=== PATIENT | male | born 2005 | race Caucasian/White ===

== ENCOUNTER 2024-07-21 12:38 | Emergency (ER) | payer OTHER, SELFPAY ==
[2024-07-21 12:40] VITALS: BP 137/87; PULSE 91; RESP 17; TEMP 36.8; O2SAT 100; BMI 23.0
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
[2024-07-21 13:47] VITALS: BP 139/89; PULSE 76; O2SAT 99
[2024-07-21 13:51] VITALS: BP 139/89; PULSE 78; O2SAT 99
--- NOTE | 2024-07-21 14:15 | DI.CT.S_ITS ---
PROCEDURE: CT FACIAL BONES WO CON INDICATIONS: dislocation? TECHNIQUE: Noncontrast 2.5 mm thick axial images acquired from the mandible through the frontal sinuses, with coronal and sagittal reformatting. For radiation dose reduction, the following was used: automated exposure control, adjustment of mA and/or kV according to patient size. COMPARISON: [facility], CR, XR MANDIBLE MIN 4V, 07/21/2024, 12:59. FINDINGS: Image quality: Excellent. Bones and teeth: 3 there is a mildly displaced fracture seen involving the anterior left mandible, as on series 2, image 17 and on series 4, image 37. There is an additional mildly displaced fracture of the right mandibular ramus, as on series 5, image 71. The mandibular condyles are not dislocated. A left mandibular incisor is missing. Orbital colón are intact. Sinus colón show no fracture or deformity. Nasal bones and septum are intact. Zygomatic arches are intact. Pterygoid plates are intact. Visualized portions of the skull base and auditory canals are intact. Sinuses: Paranasal sinuses are aerated, without fluid levels, mucosal thickening, or mucoceles. Mastoid air cells are aerated. Soft tissues: Associated soft tissue swelling can be seen anterior to the mandible. Vascular: Visualized vascular structures appear normal in the absence of contrast. Bony vascular foramina and canals are intact. IMPRESSION: Fractures seen of both sides of the mandible. No mandibular dislocation. Dictated by: Boni Garcia M.D. on 07/21/2024 at 13:45 Approved by: Boni Garcia M.D. on 07/21/2024 at 13:47
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
[2024-07-21 14:30] LABS: Add Manual Diff / Slide Review NO; Basophils Absolute Auto 100 /uL (0-100); Basophils Percent Auto 0.4 % (0-2); Eosinophils Absolute Auto 0 /uL (0-450); Eosinophils Percent Auto 0.1 % (2-4); Hemoglobin 14.5 g/dL (13.5-17.5); Lymphocytes Absolute Auto 1100 /uL (1100-4500); Lymphocytes Percent Auto 8.6 % (25-40); Mean Corpuscular HGB Conc 35.4 % (30-36); Mean Corpuscular Volume 87.5 fL (80-100); Monocytes Absolute Auto 700 /uL (0-900); Monocytes Percent Auto 5.7 % (3-14); Neutrophils Absolute Auto 10400 /uL (1500-7000); Neutrophils Percent Auto 85.2 % (50-75); Platelet Count 186 X10^3/uL (150-400); Red Blood Cell Count 4.69 X10^6/uL (4.5-5.9); Red Cell Distribution Width 12.8 % (11.6-14.8); White Blood Cell Count 12.2 X10^3/uL (4.5-11.0)
[2024-07-21] MEDS: MORPHINE 4 MG/ML INJ IV (14:30)
[2024-07-21] MEDS: KETOROLAC 30 MG/ML VIAL 15 MG IV (14:30)
[2024-07-21] MEDS: TET,DIPH,PERTUSS(ACELL),VAC/PF 0.5 ML SYRINGE IM (14:38)
[2024-07-21 14:42] LABS: BUN Creatinine Ratio 18.4 (6-22); Blood Urea Nitrogen 16 mg/dL (9-20); Calcium 9.7 mg/dL (8.4-10.2); Carbon Dioxide 23 mmol/L (22-32); Chloride 106 mmol/L (98-107); Estimated Glomerular Filt Rate > 60 mL/min (>60); Glucose 107 mg/dL (70-99); HEMOLYSIS < 15 (0-50); Sodium 139 mmol/L (137-145)
[2024-07-21 14:49] VITALS: BP 151/89; PULSE 80; RESP 16; O2SAT 100
[2024-07-21 15:00] VITALS: BP 141/93; PULSE 75; RESP 16; O2SAT 99
[2024-07-21] MEDS: PENICILLIN POTASSIUM IV (15:52)
[2024-07-21] MEDS: WATER IV (15:52)
[2024-07-21] MEDS: DEXTROSE 5% IV (15:52)
[2024-07-21 17:29] VITALS: BP 128/83; PULSE 67; RESP 16; O2SAT 100
== END 2024-07-21 17:30 | disposition home or self-care (01) ==
PROVIDERS: Emergency Provider Student in an Organized Health Care Education/Training Program
DX: S02.609A Fracture of mandible, unspecified, initial encounter for closed fracture (principal); W50.0XXA Accidental hit or strike by another person, initial encounter; Y93.66 Activity, soccer; Z23 Encounter for immunization
CPT/HCPCS: 36415; 70110; 70486; 80048; 85025; 90471; 96365; 96375; 99284; 90715; J1885; J2270; J2540